=== PATIENT | male | born 1970 | race American Indian/Alaskan Native ===

== ENCOUNTER 2017-09-13 09:47 | Day surgery (SDC) | payer BC ==
[2017-09-13 10:06] VITALS: BMI 29.2
[2017-09-13] MEDS ORDERED: Lidocaine 1% w Epi 1:100,000 Inj ONE (13:08)
[2017-09-13] MEDS ORDERED: STERILE IRRIGATING SOLUTION 15 ML IR ONE ×2 (13:08)
[2017-09-13] MEDS ORDERED: Povidone Iodine 5% Opht SOLUTION ONE (13:08)
[2017-09-13] MEDS ORDERED: Maxitrol Opht Susp ONE (14:32)
[2017-09-13] MEDS ORDERED: Tetracaine 0.5% Ophth 2 ML BOTTLE OD ONE (15:10)
[2017-09-13 15:49] VITALS: BP 122/83; PULSE 61; RESP 18; TEMP 98.8; O2SAT 98
--- NOTE | 2017-10-04 19:02 | OP ---
PROCEDURE DATE: 09/13/2017 SURGEON: HEMA SILVA MD ANESTHESIOLOGIST: NONE ANESTHESIA: LOCAL PREOPERATIVE DIAGNOSIS: CHALAZION OF THE RIGHT UPPER LID POSTOPERATIVE DIAGNOSIS: SAME OPERATION: EXCISION OF CHALAZION RIGHT UPPER LID . PREPARATION AND PROCEDURE: After the patient was properly prepped and draped for sterile ophthalmic surgery, 2% Xylocaine with epinephrine was infiltrated into the upper lid. After adequate anesthesia was induced, a chalazion clamp was applied to the upper lid and the lid was everted. A #15 HelloFresh-Papo blade was utilized for incising through the tarsal conjunctiva into the substance of the necrotic chalazion. Copious amounts of purulent material was evacuated, and curettage was performed. The capsule of the chalazion was excised with sharp Asif scissors. After proper evacuation of all the necrotic material, the clamp was released and Maxitrol Ophthalmic Ointment was applied to the eye and a pressure patch was subsequently applied. HEMA SILVA MD [facility]
== END 2017-09-13 17:20 | disposition home or self-care (01) ==
LOC: H.OPSURG 09:47
PROVIDERS: ATTEND Ophthalmology
DX: H00.11 Chalazion right upper eyelid (principal)